=== PATIENT | male | born 1960 | race Caucasian/White ===

== ENCOUNTER 2023-01-23 16:15 | Inpatient (IN) | payer MEDICAID ==
[~2023-01-23] VITALS: Ht 172.7 cm; Wt 84.2 kg
[2023-01-23 18:27] LABS: BASOPHILS % (AUTO) 0.3 % (0.0-2.0); EOSINOPHILS % (AUTO) 2.1 % (1.0-6.0); HEMATOCRIT 41.3 % (41-53); HEMOGLOBIN 13.8 g/dL (13.5-17.5); LYMPHOCYTES # (AUTO) 1.4 K/uL (1.0-4.8); LYMPHOCYTES % (AUTO) 12.9 % (22.0-44.0); MEAN CORPUSCULAR HEMOGLOBIN 29.7 pg (26.0-34.0); MEAN CORPUSCULAR HGB CONC 33.4 G/dL (31.0-37.0); MEAN CORPUSCULAR VOLUME 89 fL (80-100); MONOCYTES # (AUTO) 1.3 K/uL (0.1-1.0); MONOCYTES % (AUTO) 11.6 % (2.0-9.0); NEUTROPHILS # (AUTO) 8.2 K/uL (1.8-7.7); NEUTROPHILS % (AUTO) 73.1 % (40.0-70.0); PLATELET COUNT (AUTO) 213 K/uL (150-450); RED BLOOD CELL COUNT(AUTO) 4.64 MIL/uL (4.50-5.90); RED CELL DISTRIBUTION WIDTH 14.1 % (11.5-14.5)
[2023-01-23 18:38] LABS: ANION GAP 12 mmol/L (8-16); CALCIUM, TOTAL 8.5 mg/dL (8.8-10.5); CARBON DIOXIDE 24 mmol/L (22-29); CHLORIDE 103 mmol/L (98-107); CREATININE 1.21 mg/dL (0.60-1.30); GLOMERULAR FILTR. RATE CALC > 60 mL/min (>60); GLUCOSE,RANDOM 105 mg/dL (70-110); POTASSIUM 3.7 mmol/L (3.5-5.1); SODIUM SERUM 139 mmol/L (136-145)
[2023-01-23 18:42] LABS: COVID AG,FIA SOURCE NASOPHARYNGEAL
[2023-01-23 18:44] LABS: ALANINE AMINOTRANSFERASE 25 U/L (12-78); ALKALINE PHOSPHATASE 55 U/L (46-116); ASPARTATE AMINOTRANSFERASE 12 U/L (15-37); BILIRUBIN,TOTAL 1.1 mg/dL (0.1-1.0); LIPASE 43 U/L (73-393); TOTAL PROTEIN, SERUM 6.8 g/dL (6.4-8.2)
[2023-01-23 23:28] LABS: APPEARANCE,URINE CLEAR (CLEAR); BILIRUBIN,URINE NEGATIVE (NEGATIVE); GLUCOSE, URINE (UA) 150-200 mg/dL (NEGATIVE); KETONES,URINE NEGATIVE (NEGATIVE); LEUKOCYTE ESTERASE ,URINE NEGATIVE (NEGATIVE); NITRATE,URINE NEGATIVE (NEGATIVE); OCCULT BLOOD,URINE TRACE (NEGATIVE); PROTEIN,URINE TRACE mg/dL (NEGATIVE); SPECIFIC GRAVITIY, URINE 1.029 (1.003-1.030)
[2023-01-24 00:37] LABS: AMPHET/METH SCREEN,URINE POSITIVE (NEGATIVE); BARBITURATE SCREEN, URINE NEGATIVE (NEGATIVE); BENZODIAZEPINES SCREEN,URINE NEGATIVE (NEGATIVE); CANNABINOID SCREEN,URINE NEGATIVE (NEGATIVE); COCAINE SCREEN,URINE NEGATIVE (NEGATIVE); METHADONE SCREEN, URINE NEGATIVE (NEGATIVE); OPIATE SCREEN,URINE NEGATIVE (NEGATIVE); PHENCYCLIDINE SCREEN,URINE NEGATIVE (NEGATIVE)
[2023-01-24 01:04] LABS: BACTERIA,URINE None Seen /HPF (None Seen); RBC,URINE 0-2 /HPF (0-2); SQUAMOUS EPITHELIAL CELL,UR Few /LPF (None Seen); WBC,URINE None Seen /HPF (0-5)
[2023-01-24] MEDS ORDERED: GuaiFENesin/D-METHORPHAN [SUGAR-FREE] 200-20MG/10 ML SYRUP UDCUP PO PRN (08:15)
[2023-01-24] MEDS ORDERED: ONDANSETRON HCL 4 MG TABLET PO PRN (08:15)
[2023-01-24] MEDS ORDERED: PETROLATUM,WHITE 28 GM JELLY TP PRN (08:15)
[2023-01-24] MEDS ORDERED: DOCUSATE SODIUM 100 MG CAPSULE PO PRN (08:15)
[2023-01-24] MEDS ORDERED: MAGNESIUM HYDROXIDE SUSPENSION 30 ML UDCUP PO PRN (08:15)
[2023-01-24] MEDS ORDERED: ALBUTEROL SULFATE HFA 90 MCG/PUFF 8 GM INHALER IH PRN (08:15)
[2023-01-24] MEDS ORDERED: NICOTINE 14 MG/24 HOUR PATCH TD PRN (08:15)
[2023-01-24] MEDS ORDERED: CloNIDine HCL 0.1 MG TABLET PO PRN (08:15)
[2023-01-24 09:52] VITALS: BP 129/90; PULSE 88; RESP 18; TEMP 98.2; O2SAT 98
[2023-01-24 10:32] VITALS: BP 129/90; PULSE 88; RESP 18; TEMP 98.2
[2023-01-24] MEDS: IBUPROFEN 400 MG TABLET PO PRN (10:52)
[2023-01-24] MEDS: LORazepam 2 MG TABLET PO PRN (10:52)
[2023-01-24] MEDS: HALOPERIDOL 5 MG TABLET PO PRN (10:52)
[2023-01-24] MEDS ORDERED: PNEUMOCOCCAL VACCINE POLYVALENT 0.5 ML VIAL [PPSV23] IM. ONE (11:15)
[2023-01-24 11:30] VITALS: BP 129/90; PULSE 88; RESP 18; TEMP 98.7
[2023-01-24 16:53] VITALS: BP 152/89; PULSE 72; RESP 18; TEMP 97.8; O2SAT 99
[2023-01-24 20:00] VITALS: BP 150/100; PULSE 78; RESP 18; TEMP 97.3; O2SAT 97
[2023-01-24] MEDS: OLANZapine 5 MG TABLET PO SCH (20:27)
[2023-01-24] MEDS: MAG HYDROX/AL HYDROX/SIMETH ES 30 ML SUSPENSION UDCUP PO PRN (23:40)
[2023-01-25] VITALS (7 sets, daily range): BP systolic 119–140; BP diastolic 69–86; PULSE 60–92; RESP 16–18; TEMP 97.1–99.1; O2SAT 93–96
[2023-01-25] MEDS: LORazepam 2 MG TABLET PO PRN ×3 (02:22→17:31)
[2023-01-25] MEDS: ACETAMINOPHEN 325 MG TABLET PO PRN (02:22)
[2023-01-25 07:59] LABS: HEMOGLOBIN A1C 5.1 % (3.8-5.6)
[2023-01-25 08:09] LABS: CHOL/HDL RATIO 3.4 (4.2-7.3); THYROID STIMULATING HORMONE 1.39 uIU/mL (0.36-3.74)
[2023-01-25] MEDS: TraMADol HCL 50 MG TABLET PO PRN ×2 (08:37→17:31)
[2023-01-25] MEDS: HALOPERIDOL 5 MG TABLET PO PRN ×2 (08:37→17:31)
[2023-01-25] MEDS: OLANZapine 5 MG TABLET PO SCH ×2 (08:37→20:24)
[2023-01-25] MEDS: CIPROFLOXACIN HCL 500 MG TABLET PO SCH ×2 (08:38→17:31)
[2023-01-25] MEDS: MetroNIDAZOLE 500 MG TABLET PO SCH ×3 (08:38→17:31)
[2023-01-26] MEDS: OLANZapine 5 MG TABLET PO SCH ×2 (08:19→20:29)
[2023-01-26] MEDS: CIPROFLOXACIN HCL 500 MG TABLET PO SCH ×2 (08:19→16:31)
[2023-01-26] MEDS: MetroNIDAZOLE 500 MG TABLET PO SCH ×3 (08:19→16:31)
[2023-01-26 09:42] VITALS: BP 134/73; PULSE 71; RESP 18; TEMP 96.8; O2SAT 100
[2023-01-26] MEDS: LORazepam 2 MG TABLET PO PRN ×2 (11:29→18:22)
[2023-01-26] MEDS: HALOPERIDOL 5 MG TABLET PO PRN (15:38)
[2023-01-26 21:10] VITALS: BP 136/87; PULSE 80; RESP 17; TEMP 97.6; O2SAT 96
[2023-01-26] MEDS: ZOLPIDEM TARTRATE 10 MG TABLET PO PRN (23:45)
[2023-01-27] MEDS: MetroNIDAZOLE 500 MG TABLET PO SCH ×3 (08:28→16:04)
[2023-01-27] MEDS: CIPROFLOXACIN HCL 500 MG TABLET PO SCH ×2 (08:28→16:04)
[2023-01-27] MEDS: OLANZapine 5 MG TABLET PO SCH ×2 (08:28→20:54)
[2023-01-27] MEDS: HALOPERIDOL 5 MG TABLET PO PRN ×2 (10:30→16:01)
[2023-01-27] MEDS: LORazepam 2 MG TABLET PO PRN ×2 (10:30→16:40)
[2023-01-27 12:25] VITALS: BP 140/84; PULSE 83; RESP 18; TEMP 97.7; O2SAT 99
[2023-01-27 20:23] VITALS: BP 126/82; PULSE 84; RESP 18; TEMP 98.1; O2SAT 98
[2023-01-27] MEDS: QUEtiapine FUMARATE 300 MG TABLET PO SCH (20:54)
[2023-01-27] MEDS: ZOLPIDEM TARTRATE 10 MG TABLET PO PRN (22:26)
[2023-01-28] MEDS: LORazepam 2 MG TABLET PO PRN ×3 (00:07→22:01)
[2023-01-28] MEDS: HALOPERIDOL 5 MG TABLET PO PRN ×2 (00:07→22:01)
[2023-01-28] MEDS: CIPROFLOXACIN HCL 500 MG TABLET PO SCH ×2 (08:22→16:05)
[2023-01-28] MEDS: MetroNIDAZOLE 500 MG TABLET PO SCH ×3 (08:23→16:05)
[2023-01-28] MEDS: QUEtiapine FUMARATE 100 MG TABLET PO SCH (08:25)
[2023-01-28] MEDS: OLANZapine 5 MG TABLET PO SCH ×2 (08:25→21:00)
[2023-01-28 08:44] VITALS: BP 128/86; PULSE 74; RESP 18; TEMP 97.8; O2SAT 92
[2023-01-28] MEDS: QUEtiapine FUMARATE 300 MG TABLET PO SCH (21:00)
[2023-01-28 21:44] VITALS: BP 139/95; PULSE 76; RESP 18; TEMP 98.3; O2SAT 98
[2023-01-29] MEDS: QUEtiapine FUMARATE 100 MG TABLET PO SCH (08:34)
[2023-01-29] MEDS: CIPROFLOXACIN HCL 500 MG TABLET PO SCH ×2 (08:34→16:26)
[2023-01-29] MEDS: OLANZapine 5 MG TABLET PO SCH ×2 (08:34→20:58)
[2023-01-29] MEDS: MetroNIDAZOLE 500 MG TABLET PO SCH ×3 (08:35→16:26)
[2023-01-29 08:48] VITALS: BP 129/90; PULSE 83; RESP 18; TEMP 97.9; O2SAT 97
[2023-01-29] MEDS: LORazepam 2 MG TABLET PO PRN (11:36)
[2023-01-29 12:28] VITALS: BP 135/65; PULSE 89; RESP 18
[2023-01-29] MEDS: TraMADol HCL 50 MG TABLET PO PRN (12:28)
[2023-01-29] MEDS: QUEtiapine FUMARATE 300 MG TABLET PO SCH (20:58)
[2023-01-29] MEDS: MAG HYDROX/AL HYDROX/SIMETH ES 30 ML SUSPENSION UDCUP PO PRN (21:24)
[2023-01-29 21:35] VITALS: BP 130/85; PULSE 82; RESP 18; RESP 20; TEMP 98.1; O2SAT 99
[2023-01-30 08:45] VITALS: BP 130/79; PULSE 92; RESP 19; TEMP 97.1; O2SAT 97
[2023-01-30] MEDS: CIPROFLOXACIN HCL 500 MG TABLET PO SCH ×2 (08:47→17:24)
[2023-01-30] MEDS: MetroNIDAZOLE 500 MG TABLET PO SCH ×3 (08:47→17:24)
[2023-01-30] MEDS: OLANZapine 5 MG TABLET PO SCH ×2 (08:48→21:23)
[2023-01-30] MEDS: QUEtiapine FUMARATE 100 MG TABLET PO SCH (08:48)
[2023-01-30] MEDS: MAG HYDROX/AL HYDROX/SIMETH ES 30 ML SUSPENSION UDCUP PO PRN (09:50)
[2023-01-30] MEDS: LORazepam 2 MG TABLET PO PRN ×2 (15:14→21:23)
[2023-01-30] MEDS: TraMADol HCL 50 MG TABLET PO PRN (18:06)
[2023-01-30] MEDS: QUEtiapine FUMARATE 300 MG TABLET PO SCH (21:23)
[2023-01-30 21:42] VITALS: BP 124/69; PULSE 85; RESP 18; TEMP 97.5
[2023-01-30] MEDS: LOPERAMIDE HCL 2 MG CAPSULE PO PRN (23:39)
[2023-01-31 08:54] VITALS: BP 134/83; PULSE 84; RESP 18; TEMP 97.9; O2SAT 96
[2023-01-31] MEDS: OLANZapine 5 MG TABLET PO SCH ×2 (08:57→21:31)
[2023-01-31] MEDS: TraMADol HCL 50 MG TABLET PO PRN ×2 (08:57→17:30)
[2023-01-31] MEDS: LORazepam 2 MG TABLET PO PRN ×2 (08:57→17:30)
[2023-01-31] MEDS: QUEtiapine FUMARATE 100 MG TABLET PO SCH (08:57)
[2023-01-31] MEDS: CIPROFLOXACIN HCL 500 MG TABLET PO SCH ×2 (08:58→16:22)
[2023-01-31] MEDS: MetroNIDAZOLE 500 MG TABLET PO SCH ×3 (08:58→16:22)
[2023-01-31 17:27] VITALS: BP 140/80; PULSE 88; RESP 20; TEMP 98
[2023-01-31] MEDS: QUEtiapine FUMARATE 300 MG TABLET PO SCH (21:31)
[2023-01-31 21:50] VITALS: BP 147/89; PULSE 79; RESP 18; TEMP 96.5; O2SAT 96
[2023-02-01] MEDS: QUEtiapine FUMARATE 100 MG TABLET PO SCH (08:41)
[2023-02-01] MEDS: OLANZapine 5 MG TABLET PO SCH ×2 (08:41→21:23)
[2023-02-01 08:50] VITALS: BP 120/82; PULSE 98; RESP 18; TEMP 97.8; O2SAT 98
[2023-02-01] MEDS: LOPERAMIDE HCL 2 MG CAPSULE PO PRN (08:52)
[2023-02-01] MEDS: TraMADol HCL 50 MG TABLET PO PRN (08:52)
[2023-02-01] MEDS: HALOPERIDOL 5 MG TABLET PO PRN ×2 (08:52→13:27)
[2023-02-01] MEDS: LORazepam 2 MG TABLET PO PRN ×2 (08:52→13:27)
[2023-02-01] MEDS: IBUPROFEN 400 MG TABLET PO PRN (13:27)
[2023-02-01 20:50] VITALS: BP 124/76; PULSE 82; RESP 18; TEMP 97.2; O2SAT 97
[2023-02-01] MEDS: QUEtiapine FUMARATE 300 MG TABLET PO SCH (21:24)
[2023-02-02 08:50] VITALS: BP 137/94; PULSE 80; RESP 18; TEMP 97; O2SAT 97
[2023-02-02] MEDS: HydrOXYzine PAMOATE 50 MG CAPSULE PO PRN ×2 (08:53→16:36)
[2023-02-02] MEDS: QUEtiapine FUMARATE 100 MG TABLET PO SCH (08:53)
[2023-02-02] MEDS: OLANZapine 5 MG TABLET PO SCH ×2 (08:53→20:48)
[2023-02-02] MEDS: TraMADol HCL 50 MG TABLET PO PRN ×2 (08:53→18:11)
[2023-02-02] MEDS: HALOPERIDOL 5 MG TABLET PO PRN (16:36)
[2023-02-02 18:09] VITALS: BP 128/86; PULSE 86; RESP 20; TEMP 98
[2023-02-02] MEDS: QUEtiapine FUMARATE 300 MG TABLET PO SCH (20:48)
[2023-02-02] MEDS: ZOLPIDEM TARTRATE 10 MG TABLET PO PRN (21:09)
[2023-02-03] MEDS: OLANZapine 5 MG TABLET PO SCH ×2 (08:22→20:34)
[2023-02-03] MEDS: QUEtiapine FUMARATE 100 MG TABLET PO SCH (08:23)
[2023-02-03 08:36] VITALS: BP 121/82; PULSE 74; RESP 18; TEMP 97.3; O2SAT 93
[2023-02-03] MEDS: TraMADol HCL 50 MG TABLET PO PRN ×2 (08:36→17:03)
[2023-02-03 08:57] VITALS: BP 121/82; PULSE 74; RESP 18; TEMP 97.3; O2SAT 98
[2023-02-03 12:12] VITALS: BP 126/78; PULSE 78; RESP 19; TEMP 98.3; O2SAT 98
[2023-02-03] MEDS: ACETAMINOPHEN 325 MG TABLET PO PRN ×2 (12:12→20:46)
[2023-02-03 17:03] VITALS: BP 122/74; PULSE 79; RESP 18; TEMP 97.7; O2SAT 99
[2023-02-03] MEDS: HydrOXYzine PAMOATE 50 MG CAPSULE PO PRN (17:04)
[2023-02-03] MEDS: QUEtiapine FUMARATE 300 MG TABLET PO SCH (20:34)
[2023-02-03 20:44] VITALS: BP 122/75; PULSE 79; RESP 20; TEMP 97.7; O2SAT 98
[2023-02-03] MEDS: ZOLPIDEM TARTRATE 10 MG TABLET PO PRN (21:26)
[2023-02-04] MEDS: TraMADol HCL 50 MG TABLET PO PRN (03:31)
[2023-02-04 03:33] VITALS: BP 139/91; PULSE 80; RESP 20; TEMP 96.2; O2SAT 95
[2023-02-04 08:33] VITALS: BP 131/80; PULSE 80; RESP 18; TEMP 97.8; O2SAT 98
[2023-02-04] MEDS: QUEtiapine FUMARATE 100 MG TABLET PO SCH (08:48)
[2023-02-04] MEDS: OLANZapine 5 MG TABLET PO SCH (08:48)
[2023-02-04] MEDS: HydrOXYzine PAMOATE 50 MG CAPSULE PO PRN (08:50)
[2023-02-04] MEDS ORDERED: QUET300T19 PO (14:19)
[2023-02-04] MEDS ORDERED: OLAN5TAB52 PO (14:19)
[2023-02-04] MEDS ORDERED: QUET100T34 PO (14:19)
== END 2023-02-04 15:30 | disposition home or self-care (01) | DRG 750 ==
LOC: EMS 16:15 → 3EI 01-24 06:23
PROVIDERS: ADMIT Psychiatry & Neurology Child & Adolescent Psychiatry; ATTEND Psychiatry & Neurology Child & Adolescent Psychiatry
DX: F25.1 Schizoaffective disorder, depressive type (principal); R45.851 Suicidal ideations; D72.829 Elevated white blood cell count, unspecified; K57.32 Diverticulitis of large intestine without perforation or abscess without bleeding; Z20.822 Contact with and (suspected) exposure to COVID-19; R03.0 Elevated blood-pressure reading, without diagnosis of hypertension; F15.10 Other stimulant abuse, uncomplicated; E80.6 Other disorders of bilirubin metabolism
CPT/HCPCS: 74176; 80053; 80061; 80307; 81001; 83036; 83690; 84443; 85025; 87081; 99285; G0480

== ENCOUNTER 2023-03-12 10:17 | Inpatient (IN) | payer MEDICAID ==
[~2023-03-12] VITALS: Ht 172.7 cm; Wt 90.1 kg
[~2023-03-12 10:17] MED LIST: OLAN5TAB52 PO; QUET100T34 PO; QUET300T19 PO
[2023-03-12] MEDS ORDERED: ZIPR40CA38 PO (10:54)
[2023-03-12] MEDS ORDERED: BUPR450T3 PO (10:54)
[2023-03-12 11:36] LABS: BASOPHILS % (AUTO) 0.4 % (0.0-2.0); EOSINOPHILS % (AUTO) 1.6 % (1.0-6.0); HEMATOCRIT 46.7 % (41-53); HEMOGLOBIN 15.6 g/dL (13.5-17.5); LYMPHOCYTES % (AUTO) 16.3 % (22.0-44.0); MEAN CORPUSCULAR HEMOGLOBIN 29.1 pg (26.0-34.0); MEAN CORPUSCULAR HGB CONC 33.3 G/dL (31.0-37.0); MEAN CORPUSCULAR VOLUME 87 fL (80-100); MONOCYTES # (AUTO) 0.5 K/uL (0.1-1.0); MONOCYTES % (AUTO) 8.8 % (2.0-9.0); NEUTROPHILS # (AUTO) 4.3 K/uL (1.8-7.7); NEUTROPHILS % (AUTO) 72.9 % (40.0-70.0); PLATELET COUNT (AUTO) 252 K/uL (150-450); RED BLOOD CELL COUNT(AUTO) 5.36 MIL/uL (4.50-5.90); RED CELL DISTRIBUTION WIDTH 14.2 % (11.5-14.5); WHITE BLOOD COUNT (AUTO) 5.9 K/uL (4.5-11.0)
[2023-03-12 11:47] LABS: ANION GAP 11 mmol/L (8-16); CALCIUM, TOTAL 8.9 mg/dL (8.8-10.5); CARBON DIOXIDE 22 mmol/L (22-29); CHLORIDE 106 mmol/L (98-107); CREATININE 0.96 mg/dL (0.60-1.30); GLOMERULAR FILTR. RATE CALC > 60 mL/min (>60); GLUCOSE,RANDOM 96 mg/dL (70-110); POTASSIUM 4.4 mmol/L (3.5-5.1); SODIUM SERUM 139 mmol/L (136-145); UREA NITROGEN, BLOOD 32 mg/dL (7-18)
[2023-03-12 11:49] LABS: ALCOHOL, BLOOD (SERUM) < 3 mg/dL (0-10)
[2023-03-12 11:51] LABS: ALANINE AMINOTRANSFERASE 31 U/L (12-78); ALBUMIN 3.6 g/dL (3.4-5.0); ALKALINE PHOSPHATASE 57 U/L (46-116); ASPARTATE AMINOTRANSFERASE 22 U/L (15-37); BILIRUBIN,TOTAL 0.6 mg/dL (0.1-1.0); TOTAL PROTEIN, SERUM 7.4 g/dL (6.4-8.2)
[2023-03-12 12:16] LABS: COVID AG,FIA SOURCE NASOPHARYNGEAL
[2023-03-12] MEDS ORDERED: OLANZapine 5 MG TABLET PO ONE (12:45)
[2023-03-12] MEDS ORDERED: LORazepam 2 MG/ML VIAL IM ONE (12:45)
[2023-03-12] MEDS ORDERED: DiphenhydrAMINE HCL 50 MG/ML VIAL IM ONE (12:45)
[2023-03-12 12:52] LABS: SARS-COV2 (COVID) ANTIGEN,FIA Negative (Negative)
[2023-03-12 16:17] VITALS: BP 110/76; PULSE 81; RESP 18; TEMP 98.1; O2SAT 99
[2023-03-12] MEDS: CEPHALEXIN MONOHYDRATE 500 MG CAPSULE PO SCH (18:07)
[2023-03-12 20:32] VITALS: BP 109/73; PULSE 104; RESP 18; TEMP 98.3; O2SAT 98
[2023-03-13 09:27] VITALS: BP 130/69; PULSE 78; RESP 19; TEMP 97.9; O2SAT 97
[2023-03-13] MEDS: CEPHALEXIN MONOHYDRATE 500 MG CAPSULE PO SCH ×3 (09:32→17:21)
[2023-03-13] MEDS: HALOPERIDOL 5 MG TABLET PO PRN (12:31)
[2023-03-13] MEDS: LORazepam 2 MG TABLET PO PRN (12:31)
[2023-03-13] MEDS: QUEtiapine FUMARATE 100 MG TABLET PO SCH (13:26)
[2023-03-13] MEDS ORDERED: NICOTINE 14 MG/24 HOUR PATCH TD PRN (14:00)
[2023-03-13] MEDS ORDERED: CloNIDine HCL 0.1 MG TABLET PO PRN (14:00)
[2023-03-13] MEDS ORDERED: MAGNESIUM HYDROXIDE SUSPENSION 30 ML UDCUP PO PRN (14:00)
[2023-03-13] MEDS ORDERED: MAG HYDROX/AL HYDROX/SIMETH ES 30 ML SUSPENSION UDCUP PO PRN (14:00)
[2023-03-13] MEDS ORDERED: ONDANSETRON HCL 4 MG TABLET PO PRN (14:00)
[2023-03-13] MEDS ORDERED: ALBUTEROL SULFATE HFA 90 MCG/PUFF 8 GM INHALER IH PRN (14:00)
[2023-03-13] MEDS ORDERED: DOCUSATE SODIUM 100 MG CAPSULE PO PRN (14:00)
[2023-03-13] MEDS ORDERED: ACETAMINOPHEN 325 MG TABLET PO PRN (14:00)
[2023-03-13] MEDS ORDERED: LOPERAMIDE HCL 2 MG CAPSULE PO PRN (14:00)
[2023-03-13] MEDS ORDERED: PETROLATUM,WHITE 28 GM JELLY TP PRN (14:00)
[2023-03-13 20:45] VITALS: BP 98/77; PULSE 86; RESP 19; TEMP 97.8; O2SAT 93
[2023-03-13] MEDS: QUEtiapine FUMARATE 300 MG TABLET PO SCH (21:00)
[2023-03-14] MEDS: ZOLPIDEM TARTRATE 10 MG TABLET PO PRN ×2 (00:35→20:54)
[2023-03-14 08:06] LABS: HEMOGLOBIN A1C 5.2 % (3.8-5.6)
[2023-03-14 08:20] LABS: CHOL/HDL RATIO 5.6 (4.2-7.3); THYROID STIMULATING HORMONE 2.06 uIU/mL (0.36-3.74)
[2023-03-14 08:32] VITALS: BP 118/78; PULSE 66; RESP 18; TEMP 97.4; O2SAT 96
[2023-03-14] MEDS: QUEtiapine FUMARATE 100 MG TABLET PO SCH (09:59)
[2023-03-14] MEDS: CEPHALEXIN MONOHYDRATE 500 MG CAPSULE PO SCH ×3 (09:59→17:14)
[2023-03-14] MEDS: LORazepam 2 MG TABLET PO PRN ×2 (16:15→22:49)
[2023-03-14] MEDS: HALOPERIDOL 5 MG TABLET PO PRN ×2 (16:16→20:54)
[2023-03-14 20:34] VITALS: BP 136/97; PULSE 70; RESP 19; TEMP 97.8; O2SAT 92
[2023-03-14] MEDS: QUEtiapine FUMARATE 300 MG TABLET PO SCH (20:55)
[2023-03-15 08:45] VITALS: BP 104/58; PULSE 60; RESP 19; TEMP 97.9; O2SAT 100
[2023-03-15 08:46] LABS: APPEARANCE,URINE CLEAR (CLEAR); BILIRUBIN,URINE NEGATIVE (NEGATIVE); COLOR,URINE LIGHT YELLOW (YELLOW); GLUCOSE, URINE (UA) NEGATIVE (NEGATIVE); KETONES,URINE NEGATIVE (NEGATIVE); LEUKOCYTE ESTERASE ,URINE NEGATIVE (NEGATIVE); NITRATE,URINE NEGATIVE (NEGATIVE); OCCULT BLOOD,URINE NEGATIVE (NEGATIVE); PH,URINE 6.5 (5.0-8.0); PH,URINE DRUG SCREEN 6.5 (5.0-8.0); PROTEIN,URINE NEGATIVE (NEGATIVE); SPECIFIC GRAVITIY, URINE 1.019 (1.003-1.030); UROBILINOGEN,URINE <=1.0 mg/dL (<=1.0)
[2023-03-15 08:52] LABS: ALCOHOL, URINE DRUG SCREEN NEGATIVE (NEGATIVE); AMPHET/METH SCREEN,URINE NEGATIVE (NEGATIVE); BARBITURATE SCREEN, URINE NEGATIVE (NEGATIVE); BENZODIAZEPINES SCREEN,URINE NEGATIVE (NEGATIVE); CANNABINOID SCREEN,URINE NEGATIVE (NEGATIVE); COCAINE SCREEN,URINE NEGATIVE (NEGATIVE); METHADONE SCREEN, URINE NEGATIVE (NEGATIVE); OPIATE SCREEN,URINE NEGATIVE (NEGATIVE); PHENCYCLIDINE SCREEN,URINE NEGATIVE (NEGATIVE)
[2023-03-15] MEDS: QUEtiapine FUMARATE 100 MG TABLET PO SCH (09:00)
[2023-03-15] MEDS: CEPHALEXIN MONOHYDRATE 500 MG CAPSULE PO SCH ×3 (09:07→16:59)
[2023-03-15] MEDS: HALOPERIDOL 5 MG TABLET PO PRN ×2 (12:54→19:21)
[2023-03-15] MEDS: LORazepam 2 MG TABLET PO PRN ×2 (12:54→19:21)
[2023-03-15] MEDS: OLANZapine 10 MG TABLET PO SCH (20:01)
[2023-03-15 20:17] VITALS: BP 128/85; PULSE 64; RESP 20; TEMP 98; O2SAT 95
[2023-03-15] MEDS: ZOLPIDEM TARTRATE 10 MG TABLET PO PRN (20:39)
[2023-03-16 09:00] VITALS: BP 105/69; PULSE 77; RESP 18; TEMP 96.3; O2SAT 97
[2023-03-16] MEDS: CEPHALEXIN MONOHYDRATE 500 MG CAPSULE PO SCH ×3 (09:18→16:47)
[2023-03-16] MEDS: HALOPERIDOL 5 MG TABLET PO PRN ×2 (12:52→17:52)
[2023-03-16] MEDS: LORazepam 2 MG TABLET PO PRN ×2 (12:53→17:52)
[2023-03-16] MEDS: OLANZapine 10 MG TABLET PO SCH (20:15)
[2023-03-16 20:19] VITALS: BP 119/89; PULSE 60; RESP 19; TEMP 98.4; O2SAT 97
[2023-03-16] MEDS: ZOLPIDEM TARTRATE 10 MG TABLET PO PRN (21:08)
[2023-03-17 08:52] VITALS: BP 115/85; PULSE 78; RESP 18; TEMP 97.5; O2SAT 95
[2023-03-17] MEDS: BuPROPion HCL XL 150 MG ER TABLET PO SCH (09:32)
[2023-03-17] MEDS: CEPHALEXIN MONOHYDRATE 500 MG CAPSULE PO SCH ×3 (09:32→16:40)
[2023-03-17] MEDS: LORazepam 2 MG TABLET PO PRN ×2 (12:52→18:47)
[2023-03-17] MEDS: HALOPERIDOL 5 MG TABLET PO PRN ×2 (12:52→18:55)
[2023-03-17 20:19] VITALS: BP 134/81; PULSE 77; RESP 18; TEMP 97.8; O2SAT 94
[2023-03-17] MEDS: OLANZapine 10 MG TABLET PO SCH (20:46)
[2023-03-17] MEDS: ZOLPIDEM TARTRATE 10 MG TABLET PO PRN (22:48)
[2023-03-18 08:53] VITALS: BP 108/70; PULSE 78; RESP 19; TEMP 97.8; O2SAT 97
[2023-03-18] MEDS: BuPROPion HCL XL 150 MG ER TABLET PO SCH (09:48)
[2023-03-18] MEDS: CEPHALEXIN MONOHYDRATE 500 MG CAPSULE PO SCH ×3 (09:48→16:57)
[2023-03-18] MEDS: LORazepam 2 MG TABLET PO PRN ×2 (12:30→21:20)
[2023-03-18] MEDS: HALOPERIDOL 5 MG TABLET PO PRN ×2 (12:47→22:43)
[2023-03-18] MEDS: OLANZapine 10 MG TABLET PO SCH (20:17)
[2023-03-18] MEDS: ZOLPIDEM TARTRATE 10 MG TABLET PO PRN (20:17)
[2023-03-18 20:43] VITALS: BP 116/68; PULSE 71; RESP 17; TEMP 98.2; O2SAT 97
[2023-03-19] MEDS: LORazepam 2 MG TABLET PO PRN ×2 (01:20→12:26)
[2023-03-19 08:46] VITALS: BP 120/80; PULSE 66; RESP 18; TEMP 97.5; O2SAT 95
[2023-03-19] MEDS: BuPROPion HCL XL 150 MG ER TABLET PO SCH (09:55)
[2023-03-19 20:41] VITALS: BP 138/96; PULSE 75; RESP 17; TEMP 99.1; O2SAT 97
[2023-03-19] MEDS: OLANZapine 10 MG TABLET PO SCH (20:56)
[2023-03-19] MEDS: ZOLPIDEM TARTRATE 10 MG TABLET PO PRN (20:57)
[2023-03-19] MEDS: HALOPERIDOL 5 MG TABLET PO PRN (22:25)
[2023-03-20] MEDS: LORazepam 2 MG TABLET PO PRN ×3 (03:12→16:21)
[2023-03-20] MEDS: BuPROPion HCL XL 150 MG ER TABLET PO SCH (08:45)
[2023-03-20 10:48] VITALS: BP 112/64; PULSE 90; RESP 20; TEMP 98; O2SAT 96
[2023-03-20] MEDS: HALOPERIDOL 5 MG TABLET PO PRN (16:21)
[2023-03-20] MEDS: GuaiFENesin/D-METHORPHAN [SUGAR-FREE] 200-20MG/10 ML SYRUP UDCUP PO PRN (18:11)
[2023-03-20] MEDS: ZOLPIDEM TARTRATE 10 MG TABLET PO PRN (20:37)
[2023-03-20] MEDS: OLANZapine 10 MG TABLET PO SCH (20:37)
[2023-03-20 20:44] VITALS: BP 125/76; PULSE 78; RESP 18; TEMP 97.9; O2SAT 98
[2023-03-21] MEDS: GuaiFENesin/D-METHORPHAN [SUGAR-FREE] 200-20MG/10 ML SYRUP UDCUP PO PRN ×2 (00:15→17:23)
[2023-03-21 08:50] VITALS: BP 119/78; PULSE 69; RESP 18; TEMP 97.9; O2SAT 96
[2023-03-21] MEDS: BuPROPion HCL XL 150 MG ER TABLET PO SCH (09:49)
[2023-03-21] MEDS: HALOPERIDOL 5 MG TABLET PO PRN (14:05)
[2023-03-21] MEDS: LORazepam 2 MG TABLET PO PRN (14:05)
[2023-03-21] MEDS: OLANZapine 10 MG TABLET PO SCH (20:42)
[2023-03-21] MEDS: ZOLPIDEM TARTRATE 10 MG TABLET PO PRN (20:42)
[2023-03-21 20:59] VITALS: BP 124/87; PULSE 91; RESP 18; TEMP 97.8; O2SAT 98
[2023-03-22 00:01] LABS: GLUCOMETER DEV NAME(LOC) POC.BV; POC SARS-COV2 AG, FIA NEGATIVE (NEGATIVE)
[2023-03-22] MEDS: GuaiFENesin/D-METHORPHAN [SUGAR-FREE] 200-20MG/10 ML SYRUP UDCUP PO PRN ×2 (00:06→20:59)
[2023-03-22] MEDS: LORazepam 2 MG TABLET PO PRN ×2 (00:07→17:13)
[2023-03-22] MEDS: HALOPERIDOL 5 MG TABLET PO PRN ×2 (00:20→17:13)
[2023-03-22] MEDS: BuPROPion HCL XL 150 MG ER TABLET PO SCH (09:11)
[2023-03-22 10:16] VITALS: BP 119/83; PULSE 74; RESP 20; TEMP 98; O2SAT 94
[2023-03-22] MEDS: OLANZapine 10 MG TABLET PO SCH (20:32)
[2023-03-22 20:46] VITALS: BP 130/98; PULSE 63; RESP 19; TEMP 98; O2SAT 95
[2023-03-22] MEDS: ZOLPIDEM TARTRATE 10 MG TABLET PO PRN (21:24)
[2023-03-23] MEDS: HALOPERIDOL 5 MG TABLET PO PRN ×2 (00:29→14:09)
[2023-03-23] MEDS: LORazepam 2 MG TABLET PO PRN ×2 (00:29→08:33)
[2023-03-23] MEDS: BuPROPion HCL XL 150 MG ER TABLET PO SCH (08:32)
[2023-03-23 08:46] VITALS: BP 122/89; PULSE 66; RESP 18; TEMP 97.9; O2SAT 96
[2023-03-23] MEDS: GuaiFENesin/D-METHORPHAN [SUGAR-FREE] 200-20MG/10 ML SYRUP UDCUP PO PRN (17:01)
[2023-03-23] MEDS: OLANZapine 10 MG TABLET PO SCH (20:45)
[2023-03-23] MEDS: ZOLPIDEM TARTRATE 10 MG TABLET PO PRN (20:45)
[2023-03-23 20:50] VITALS: BP 125/82; PULSE 72; RESP 18; TEMP 98.1; O2SAT 98
[2023-03-24 00:06] VITALS: BP 142/74; PULSE 77; RESP 17; TEMP 97.8; O2SAT 95
[2023-03-24] MEDS: LORazepam 2 MG TABLET PO PRN ×2 (00:12→14:05)
[2023-03-24] MEDS: GuaiFENesin/D-METHORPHAN [SUGAR-FREE] 200-20MG/10 ML SYRUP UDCUP PO PRN (00:12)
[2023-03-24 08:39] VITALS: BP 119/77; PULSE 68; RESP 19; TEMP 97.5; O2SAT 95
[2023-03-24] MEDS: BuPROPion HCL XL 150 MG ER TABLET PO SCH (09:31)
[2023-03-24] MEDS: OLANZapine 10 MG TABLET PO SCH (20:46)
[2023-03-24 20:51] VITALS: BP 132/99; PULSE 69; RESP 17; TEMP 97.6; O2SAT 95
[2023-03-24] MEDS: ZOLPIDEM TARTRATE 10 MG TABLET PO PRN (21:05)
[2023-03-25] MEDS: BuPROPion HCL XL 150 MG ER TABLET PO SCH (07:37)
[2023-03-25 08:56] VITALS: BP 132/89; PULSE 66; RESP 18; TEMP 97.8; O2SAT 95
[2023-03-25] MEDS: LORazepam 2 MG TABLET PO PRN ×2 (09:40→21:31)
[2023-03-25] MEDS: HALOPERIDOL 5 MG TABLET PO PRN (18:21)
[2023-03-25] MEDS: OLANZapine 10 MG TABLET PO SCH (20:38)
[2023-03-25 20:49] VITALS: BP 129/89; PULSE 67; RESP 17; TEMP 98; O2SAT 96
[2023-03-25] MEDS: ZOLPIDEM TARTRATE 10 MG TABLET PO PRN (21:31)
[2023-03-26 08:28] VITALS: BP 113/68; PULSE 73; RESP 18; TEMP 97.4; O2SAT 93
[2023-03-26] MEDS: BuPROPion HCL XL 150 MG ER TABLET PO SCH (09:42)
[2023-03-26] MEDS: HALOPERIDOL 5 MG TABLET PO PRN ×2 (14:13→22:47)
[2023-03-26] MEDS: LORazepam 2 MG TABLET PO PRN ×2 (17:26→22:47)
[2023-03-26] MEDS: OLANZapine 10 MG TABLET PO SCH (20:43)
[2023-03-26] MEDS: TraZODone HCL 100 MG TABLET PO PRN (20:58)
[2023-03-26 22:41] VITALS: BP 127/88; PULSE 89; RESP 18; TEMP 98.1; O2SAT 92
[2023-03-26] MEDS: GuaiFENesin/D-METHORPHAN [SUGAR-FREE] 200-20MG/10 ML SYRUP UDCUP PO PRN (23:47)
[2023-03-27 08:52] VITALS: BP 120/80; PULSE 80; RESP 18; TEMP 98.4; O2SAT 97
[2023-03-27] MEDS: BuPROPion HCL XL 150 MG ER TABLET PO SCH (09:43)
[2023-03-27] MEDS: POVIDONE-IODINE 10% 240 ML SOLUTION TP SCH (10:01)
[2023-03-27] MEDS: BACITRACIN 28 GM OINTMENT TP SCH (10:02)
[2023-03-27] MEDS: HALOPERIDOL 5 MG TABLET PO PRN ×2 (15:49→21:49)
[2023-03-27] MEDS: GuaiFENesin/D-METHORPHAN [SUGAR-FREE] 200-20MG/10 ML SYRUP UDCUP PO PRN (17:42)
[2023-03-27] MEDS: OLANZapine 10 MG TABLET PO SCH (20:18)
[2023-03-27 20:38] VITALS: BP 124/96; PULSE 76; RESP 18; TEMP 98.3; O2SAT 95
[2023-03-27] MEDS: TraZODone HCL 100 MG TABLET PO PRN (20:39)
[2023-03-27] MEDS: LORazepam 2 MG TABLET PO PRN (21:49)
[2023-03-28] MEDS: BuPROPion HCL XL 150 MG ER TABLET PO SCH (09:41)
[2023-03-28] MEDS: BACITRACIN 28 GM OINTMENT TP SCH (09:44)
[2023-03-28] MEDS: POVIDONE-IODINE 10% 240 ML SOLUTION TP SCH (09:44)
[2023-03-28 16:07] VITALS: BP 119/63; PULSE 72; RESP 18; TEMP 97.2; O2SAT 97
[2023-03-28] MEDS: CEPHALEXIN MONOHYDRATE 500 MG CAPSULE PO SCH (16:18)
[2023-03-28] MEDS: HALOPERIDOL 5 MG TABLET PO PRN ×2 (17:12→22:34)
[2023-03-28 20:23] VITALS: BP 112/77; PULSE 80; RESP 18; TEMP 98.2; O2SAT 98
[2023-03-28] MEDS: OLANZapine 10 MG TABLET PO SCH (21:18)
[2023-03-28] MEDS: TraZODone HCL 100 MG TABLET PO PRN (21:19)
[2023-03-29] MEDS: BuPROPion HCL XL 150 MG ER TABLET PO SCH (08:45)
[2023-03-29] MEDS: CEPHALEXIN MONOHYDRATE 500 MG CAPSULE PO SCH ×3 (08:45→16:32)
[2023-03-29 08:50] VITALS: BP 132/92; PULSE 63; RESP 18; TEMP 97.7; O2SAT 96
[2023-03-29] MEDS: BACITRACIN 28 GM OINTMENT TP SCH (10:13)
[2023-03-29] MEDS: POVIDONE-IODINE 10% 240 ML SOLUTION TP SCH (10:15)
[2023-03-29] MEDS: LORazepam 2 MG TABLET PO PRN (12:48)
[2023-03-29] MEDS: HALOPERIDOL 5 MG TABLET PO PRN ×2 (12:48→20:38)
[2023-03-29] MEDS: TraZODone HCL 100 MG TABLET PO PRN (20:38)
[2023-03-29] MEDS: OLANZapine 10 MG TABLET PO SCH (20:38)
[2023-03-29 20:50] VITALS: BP 113/71; PULSE 64; RESP 18; TEMP 98.1; O2SAT 92
[2023-03-30 00:20] VITALS: BP 119/85; PULSE 81; RESP 18; TEMP 97.8; O2SAT 96
[2023-03-30] MEDS: LORazepam 2 MG TABLET PO PRN (00:22)
[2023-03-30] MEDS: IBUPROFEN 400 MG TABLET PO PRN ×2 (00:23→21:10)
[2023-03-30 08:42] VITALS: BP 104/71; PULSE 78; RESP 18; TEMP 97.6; O2SAT 94
[2023-03-30] MEDS: BuPROPion HCL XL 150 MG ER TABLET PO SCH (09:49)
[2023-03-30] MEDS: CEPHALEXIN MONOHYDRATE 500 MG CAPSULE PO SCH ×3 (09:49→16:30)
[2023-03-30] MEDS: POVIDONE-IODINE 10% 240 ML SOLUTION TP SCH (09:53)
[2023-03-30] MEDS: BACITRACIN 28 GM OINTMENT TP SCH (09:54)
[2023-03-30] MEDS: HALOPERIDOL 5 MG TABLET PO PRN ×2 (15:53→20:29)
[2023-03-30] MEDS: OLANZapine 10 MG TABLET PO SCH (20:25)
[2023-03-30 20:44] VITALS: BP 115/91; PULSE 62; RESP 17; TEMP 98.1; O2SAT 96
[2023-03-30 21:10] VITALS: RESP 16
[2023-03-30 22:10] VITALS: RESP 16
[2023-03-30] MEDS: TraZODone HCL 100 MG TABLET PO PRN (22:36)
[2023-03-31 08:56] VITALS: BP 120/69; PULSE 61; RESP 18; TEMP 97.7; O2SAT 95
[2023-03-31] MEDS: CEPHALEXIN MONOHYDRATE 500 MG CAPSULE PO SCH ×3 (09:49→17:41)
[2023-03-31] MEDS: BuPROPion HCL XL 150 MG ER TABLET PO SCH (09:49)
[2023-03-31] MEDS: BACITRACIN 28 GM OINTMENT TP SCH (09:53)
[2023-03-31] MEDS: POVIDONE-IODINE 10% 240 ML SOLUTION TP SCH (09:53)
[2023-03-31] MEDS: HALOPERIDOL 5 MG TABLET PO PRN (17:41)
[2023-03-31 21:04] VITALS: BP 130/88; PULSE 65; RESP 19; TEMP 97.5; O2SAT 98
[2023-03-31 21:25] VITALS: RESP 18
[2023-03-31] MEDS: TraZODone HCL 100 MG TABLET PO PRN (21:59)
[2023-03-31] MEDS: IBUPROFEN 400 MG TABLET PO PRN (21:59)
[2023-03-31] MEDS: OLANZapine 10 MG TABLET PO SCH (21:59)
[2023-04-01 08:33] VITALS: BP 124/80; PULSE 70; RESP 18; TEMP 97.7; O2SAT 98
[2023-04-01] MEDS ORDERED: BuPROPion HCL 75 MG TABLET PO SCH (09:00)
[2023-04-01] MEDS: CEPHALEXIN MONOHYDRATE 500 MG CAPSULE PO SCH ×2 (09:27→12:11)
[2023-04-01] MEDS: BACITRACIN 28 GM OINTMENT TP SCH (09:57)
[2023-04-01] MEDS: POVIDONE-IODINE 10% 240 ML SOLUTION TP SCH (09:58)
[2023-04-01] MEDS ORDERED: OLAN10TA74 PO (10:44)
[2023-04-01] MEDS ORDERED: BUPR-344 PO (10:45)
[2023-04-01] MEDS ORDERED: CEPH-558 PO ×2 (10:52→10:54)
== END 2023-04-01 14:30 | disposition home or self-care (01) | DRG 750 ==
LOC: EMS 10:22 → B2S 12:36
PROVIDERS: ADMIT Psychiatry & Neurology Child & Adolescent Psychiatry; ATTEND Psychiatry & Neurology Child & Adolescent Psychiatry
DX: F25.1 Schizoaffective disorder, depressive type (principal); R45.851 Suicidal ideations; F41.9 Anxiety disorder, unspecified; Z20.822 Contact with and (suspected) exposure to COVID-19; K57.90 Diverticulosis of intestine, part unspecified, without perforation or abscess without bleeding; R00.0 Tachycardia, unspecified
CPT/HCPCS: 80053; 80061; 80307; 81003; 83036; 84443; 85025; 87081; 99285; G0480; J1200; J2060; J3535

== ENCOUNTER 2023-04-28 18:54 | Emergency (ER) | payer MEDICAID ==
[~2023-04-28] VITALS: Ht 172.7 cm; Wt 86.4 kg
[~2023-04-28 18:54] MED LIST changes: +BUPR-344 PO; +CEPH-558 PO; +OLAN10TA74 PO; -OLAN5TAB52 PO; -QUET100T34 PO; -QUET300T19 PO
[2023-04-28 19:13] VITALS: TEMP 97.7
[2023-04-28] MEDS ORDERED: SODIUM CHLORIDE 0.9% 1,000 ML IV ONE (19:15)
[2023-04-28 19:29] LABS: BASOPHILS % (AUTO) 0.4 % (0.0-2.0); EOSINOPHILS % (AUTO) 1.8 % (1.0-6.0); HEMATOCRIT 44.1 % (41-53); HEMOGLOBIN 14.5 g/dL (13.5-17.5); LYMPHOCYTES # (AUTO) 0.6 K/uL (1.0-4.8); LYMPHOCYTES % (AUTO) 11.6 % (22.0-44.0); MEAN CORPUSCULAR HEMOGLOBIN 30.2 pg (26.0-34.0); MEAN CORPUSCULAR HGB CONC 32.9 G/dL (31.0-37.0); MEAN CORPUSCULAR VOLUME 92 fL (80-100); MONOCYTES # (AUTO) 0.3 K/uL (0.1-1.0); MONOCYTES % (AUTO) 6.2 % (2.0-9.0); NEUTROPHILS # (AUTO) 4.5 K/uL (1.8-7.7); PLATELET COUNT (AUTO) 253 K/uL (150-450); RED BLOOD CELL COUNT(AUTO) 4.82 MIL/uL (4.50-5.90); WHITE BLOOD COUNT (AUTO) 5.6 K/uL (4.5-11.0)
[2023-04-28 19:39] LABS: PROTHROMBIN TIME 10.6 SEC (9.4-11.6)
[2023-04-28 19:48] LABS: ALCOHOL, BLOOD (SERUM) < 3 mg/dL (0-10)
[2023-04-28 19:49] LABS: ANION GAP 9 mmol/L (8-16); CALCIUM, TOTAL 9.1 mg/dL (8.8-10.5); CARBON DIOXIDE 25 mmol/L (22-29); CHLORIDE 107 mmol/L (98-107); CREATININE 1.59 mg/dL (0.60-1.30); GLOMERULAR FILTR. RATE CALC 44 mL/min (>60); GLUCOSE,RANDOM 119 mg/dL (70-110); POTASSIUM 4.4 mmol/L (3.5-5.1); SODIUM SERUM 141 mmol/L (136-145); UREA NITROGEN, BLOOD 28 mg/dL (7-18)
[2023-04-28 19:54] LABS: SALICYLATE < 2.8 mg/dL (2.8-20.0)
[2023-04-28 19:55] LABS: ALANINE AMINOTRANSFERASE 39 U/L (12-78); ALBUMIN 3.3 g/dL (3.4-5.0); ALKALINE PHOSPHATASE 62 U/L (46-116); ASPARTATE AMINOTRANSFERASE 24 U/L (15-37); BILIRUBIN,TOTAL 0.3 mg/dL (0.1-1.0)
[2023-04-28 19:57] LABS: ACETAMINOPHEN < 2 mcg/mL (10-30)
[2023-04-28 21:13] VITALS: BP 128/75; PULSE 90; RESP 16
== END 2023-04-28 23:16 | disposition home or self-care (01) ==
LOC: EMS 18:55
DX: T40.411A Poisoning by fentanyl or fentanyl analogs, accidental (unintentional), initial encounter (principal); F41.9 Anxiety disorder, unspecified; F20.9 Schizophrenia, unspecified; Y92.89 Other specified places as the place of occurrence of the external cause
CPT/HCPCS: 99285; 96360; 71045; 80053; 85025; 85610; 36415; 93005; G0480; G0481

== ENCOUNTER 2023-08-15 12:05 | Emergency (ER) | payer MEDICAID ==
[~2023-08-15] VITALS: Ht 172.7 cm; Wt 86.4 kg
[2023-08-15 12:15] VITALS: TEMP 98.3
[2023-08-15] MEDS ORDERED: HYDROCODONE/ACETAMINOPHEN 5-325 MG TABLET PO ONE (15:00)
[2023-08-15] MEDS ORDERED: LATA2.5D14 OU (15:00)
[2023-08-15] MEDS ORDERED: BUPR-49 PO (15:00)
[2023-08-15] MEDS ORDERED: DORZ10DR10 OU (15:00)
[2023-08-15] MEDS ORDERED: ATRO2DRO7 OD (15:00)
[2023-08-15] MEDS ORDERED: PREDAOS OD (15:00)
[2023-08-15 15:21] VITALS: BP 139/84; PULSE 84; RESP 16
== END 2023-08-15 15:30 | disposition home or self-care (01) ==
LOC: EMS 12:05
DX: S46.001A Unspecified injury of muscle(s) and tendon(s) of the rotator cuff of right shoulder, initial encounter (principal); F41.9 Anxiety disorder, unspecified; F31.9 Bipolar disorder, unspecified; F20.9 Schizophrenia, unspecified; F15.90 Other stimulant use, unspecified, uncomplicated; Z98.890 Other specified postprocedural states; Y08.89XA Assault by other specified means, initial encounter; Y93.89 Activity, other specified; Y92.89 Other specified places as the place of occurrence of the external cause; Y99.8 Other external cause status
CPT/HCPCS: 29105; 99283

== ENCOUNTER 2024-02-03 18:55 | Inpatient (IN) | payer MEDICAID ==
[~2024-02-03] VITALS: Ht 172.7 cm; Wt 84.4 kg
[~2024-02-03 18:55] MED LIST changes: +ATRO2DRO7 OD; -BUPR-344 PO; +BUPR-49 PO; -CEPH-558 PO; +DORZ10DR10 OU; +LATA2.5D14 OU; -OLAN10TA74 PO; +PREDAOS OD
[2024-02-03 22:43] LABS: COVID AG,FIA SOURCE NASAL SWAB
[2024-02-03 22:54] LABS: ALCOHOL, BLOOD (SERUM) < 3 mg/dL (0-10)
[2024-02-03 22:55] LABS: PH,URINE DRUG SCREEN 6.5 (5.0-8.0)
[2024-02-03 22:56] LABS: APPEARANCE,URINE CLEAR (CLEAR); BILIRUBIN,URINE NEGATIVE (NEGATIVE); COLOR,URINE YELLOW (YELLOW); GLUCOSE, URINE (UA) NEGATIVE (NEGATIVE); KETONES,URINE NEGATIVE (NEGATIVE); LEUKOCYTE ESTERASE ,URINE LARGE (NEGATIVE); NITRATE,URINE NEGATIVE (NEGATIVE); OCCULT BLOOD,URINE SMALL (NEGATIVE); PH,URINE 6.5 (5.0-8.0); PROTEIN,URINE TRACE mg/dL (NEGATIVE); UROBILINOGEN,URINE <=1.0 mg/dL (<=1.0)
[2024-02-03 22:57] LABS: BASOPHILS % (AUTO) 0.4 % (0.0-2.0); EOSINOPHILS % (AUTO) 3.2 % (1.0-6.0); HEMATOCRIT 46.5 % (41-53); HEMOGLOBIN 15.3 g/dL (13.5-17.5); LYMPHOCYTES # (AUTO) 1.3 K/uL (1.0-4.8); MEAN CORPUSCULAR HEMOGLOBIN 29.3 pg (26.0-34.0); MEAN CORPUSCULAR HGB CONC 32.8 G/dL (31.0-37.0); MEAN CORPUSCULAR VOLUME 89 fL (80-100); MONOCYTES # (AUTO) 0.6 K/uL (0.1-1.0); MONOCYTES % (AUTO) 10.2 % (2.0-9.0); NEUTROPHILS # (AUTO) 3.6 K/uL (1.8-7.7); NEUTROPHILS % (AUTO) 63.2 % (40.0-70.0); PLATELET COUNT (AUTO) 202 K/uL (150-450); RED CELL DISTRIBUTION WIDTH 13.1 % (11.5-14.5); WHITE BLOOD COUNT (AUTO) 5.8 K/uL (4.5-11.0)
[2024-02-03 23:01] LABS: ALCOHOL, URINE DRUG SCREEN NEGATIVE (NEGATIVE); AMPHET/METH SCREEN,URINE POSITIVE (NEGATIVE); BARBITURATE SCREEN, URINE NEGATIVE (NEGATIVE); BENZODIAZEPINES SCREEN,URINE NEGATIVE (NEGATIVE); CANNABINOID SCREEN,URINE NEGATIVE (NEGATIVE); COCAINE SCREEN,URINE NEGATIVE (NEGATIVE); METHADONE SCREEN, URINE NEGATIVE (NEGATIVE); OPIATE SCREEN,URINE POSITIVE (NEGATIVE); PHENCYCLIDINE SCREEN,URINE NEGATIVE (NEGATIVE)
[2024-02-03 23:04] LABS: SARS-COV2 (COVID) ANTIGEN,FIA Negative (Negative)
[2024-02-03 23:19] LABS: ANION GAP 11 mmol/L (8-16); CALCIUM, TOTAL 9.2 mg/dL (8.8-10.5); CARBON DIOXIDE 26 mmol/L (22-29); CHLORIDE 103 mmol/L (98-107); CREATININE 0.99 mg/dL (0.60-1.30); GLOMERULAR FILTR. RATE CALC > 60 mL/min (>60); GLUCOSE,RANDOM 96 mg/dL (70-110); POTASSIUM 3.8 mmol/L (3.5-5.1); SODIUM SERUM 140 mmol/L (136-145); UREA NITROGEN, BLOOD 36 mg/dL (7-18)
[2024-02-03 23:24] LABS: BACTERIA,URINE Moderate /HPF (None Seen); RBC,URINE 0-2 /HPF (0-2); SQUAMOUS EPITHELIAL CELL,UR Few /LPF (None Seen)
[2024-02-03 23:25] LABS: AMORPHOUS SEDIMENT,UR Moderate /LPF (None Seen); URIC ACID CRYSTALS,URINE Few /LPF (None Seen)
[2024-02-04] MEDS: ZOLPIDEM TARTRATE 10 MG TABLET PO PRN (01:00)
[2024-02-04] MEDS: CEPHALEXIN MONOHYDRATE 500 MG CAPSULE PO ONE (07:07)
[2024-02-04] MEDS: HALOPERIDOL 5 MG TABLET PO PRN (07:12)
[2024-02-04] MEDS: LORazepam 2 MG TABLET PO PRN (07:12)
[2024-02-04 11:45] VITALS: BP 133/83; PULSE 65; RESP 16; TEMP 98.3; O2SAT 95
[2024-02-04 20:54] VITALS: BP 135/74; PULSE 81; RESP 17; TEMP 98.2; O2SAT 96
[2024-02-04] MEDS ORDERED: OMEPRAZOLE 20 MG CAPSULE PO PRN (23:15)
[2024-02-04] MEDS ORDERED: BENZOCAINE/MENTHOL LOZENGE PO PRN (23:15)
[2024-02-04] MEDS ORDERED: ONDANSETRON HCL 4 MG TABLET PO PRN (23:15)
[2024-02-04] MEDS ORDERED: DOCUSATE SODIUM 100 MG CAPSULE PO PRN (23:15)
[2024-02-04] MEDS ORDERED: ALBUTEROL SULFATE HFA 90 MCG/PUFF 8 GM INHALER IH PRN (23:15)
[2024-02-04] MEDS ORDERED: CloNIDine HCL 0.1 MG TABLET PO PRN (23:15)
[2024-02-04] MEDS ORDERED: PETROLATUM,WHITE 28 GM JELLY TP PRN (23:15)
[2024-02-04] MEDS ORDERED: MAGNESIUM HYDROXIDE SUSPENSION 30 ML UDCUP PO PRN (23:15)
[2024-02-04] MEDS ORDERED: LOPERAMIDE HCL 2 MG CAPSULE PO PRN (23:15)
[2024-02-04] MEDS ORDERED: MAG HYDROX/ALUMINUM HYD/SIMETH ES 30 ML SUSPENSION UDCUP PO PRN (23:15)
[2024-02-04] MEDS ORDERED: BACITRACIN 28 GM OINTMENT TP PRN (23:15)
[2024-02-04 23:20] VITALS: BP 139/81; PULSE 78; RESP 17; TEMP 98; O2SAT 97
[2024-02-04] MEDS: IBUPROFEN 600 MG TABLET PO PRN (23:22)
[2024-02-05] MEDS: CEPHALEXIN MONOHYDRATE 500 MG CAPSULE PO SCH (08:46)
[2024-02-05] MEDS: PrednisoLONE ACETATE 1% 5 ML OPHTHALMIC SUSPENSION OD SCH (09:00)
[2024-02-05 09:14] VITALS: BP 136/83; PULSE 82; RESP 18; TEMP 97.7; O2SAT 98
[2024-02-05] MEDS: DORZOLAMIDE/TIMOLOL 2-0.5% [22.3-6.8MG/ML] 10 ML OPHTHALMIC SOLUTION OU SCH (09:30)
[2024-02-05] MEDS: BuPROPion HCL 100 MG SR TABLET PO SCH (12:30)
[2024-02-05 20:54] VITALS: BP 134/80; PULSE 85; RESP 18; TEMP 97.8; O2SAT 98
[2024-02-05] MEDS: QUEtiapine FUMARATE 300 MG TABLET PO SCH (21:16)
[2024-02-05] MEDS: LATANOPROST 0.005% 2.5 ML OPHTHALMIC SOLUTION OU SCH (21:28)
[2024-02-06 10:01] VITALS: BP 113/78; PULSE 60; RESP 18; TEMP 98; O2SAT 98
[2024-02-06 12:04] VITALS: BP 121/82; PULSE 74; RESP 17; O2SAT 97
[2024-02-06] MEDS: ACETAMINOPHEN 325 MG TABLET PO PRN (12:07)
[2024-02-06 20:48] VITALS: BP 121/80; RESP 17; TEMP 98.8; O2SAT 98
[2024-02-06 21:20] VITALS: BP 121/80; PULSE 97; RESP 17; TEMP 98.8; O2SAT 98
[2024-02-06 22:23] VITALS: RESP 18
[2024-02-07 12:44] VITALS: BP 114/67; PULSE 53; RESP 17; TEMP 97.6; O2SAT 96
[2024-02-07 20:41] VITALS: BP 121/63; PULSE 72; RESP 18; TEMP 97.4
[2024-02-08 08:00] VITALS: BP 129/69; PULSE 68; RESP 18; TEMP 97.6; O2SAT 96
[2024-02-08 23:15] VITALS: BP 130/74; PULSE 68; RESP 18; TEMP 98.4; O2SAT 98
[2024-02-09 09:15] VITALS: BP 128/70; PULSE 64; RESP 19; TEMP 97
[2024-02-09 16:57] VITALS: BP 122/70; PULSE 68; RESP 18; TEMP 97.8
[2024-02-09 17:57] VITALS: BP 124/76; PULSE 70; RESP 18; TEMP 97.6
[2024-02-09 21:28] VITALS: BP 120/92; PULSE 65; RESP 18; TEMP 98.2; O2SAT 96
[2024-02-10] MEDS ORDERED: BUPR-225 PO (07:26)
[2024-02-10] MEDS ORDERED: QUET300T19 PO (07:26)
[2024-02-10 11:38] VITALS: BP 136/80; PULSE 65; RESP 16; TEMP 98.8; O2SAT 97
== END 2024-02-10 17:11 | disposition home or self-care (01) | DRG 753 ==
LOC: EMS 18:55 → 3EI 02-04 17:00
PROVIDERS: ADMIT Psychiatry & Neurology Psychiatry; ATTEND Psychiatry & Neurology Psychiatry
PROC: GZHZZZZ Group Psychotherapy (ICD-10-PCS; principal; 2024-02-05)
PROC: GZ52ZZZ Individual Psychotherapy, Cognitive (ICD-10-PCS; 2024-02-05)
DX: F31.4 Bipolar disorder, current episode depressed, severe, without psychotic features (principal); L98.429 Non-pressure chronic ulcer of back with unspecified severity; R45.851 Suicidal ideations; F41.9 Anxiety disorder, unspecified; H40.9 Unspecified glaucoma; F15.20 Other stimulant dependence, uncomplicated; F11.20 Opioid dependence, uncomplicated; Z20.822 Contact with and (suspected) exposure to COVID-19; G47.00 Insomnia, unspecified; K59.00 Constipation, unspecified; N39.0 Urinary tract infection, site not specified; Z79.899 Other long term (current) drug therapy; Z72.0 Tobacco use
CPT/HCPCS: 80048; 80307; 81001; 85025; 87086; 87186; 99285; G0480

== ENCOUNTER 2024-05-13 04:30 | Emergency (ER) | payer MEDICAID ==
[~2024-05-13] VITALS: Ht 172.7 cm; Wt 84.1 kg
[~2024-05-13 04:30] MED LIST changes: -ATRO2DRO7 OD; +BUPR-225 PO; -BUPR-49 PO; -DORZ10DR10 OU; -LATA2.5D14 OU; -PREDAOS OD; +QUET300T19 PO
[2024-05-13 04:33] VITALS: TEMP 97.2
[2024-05-13 05:53] LABS: BASOPHILS % (AUTO) 0.3 % (0.0-2.0); EOSINOPHILS % (AUTO) 3.4 % (1.0-6.0); HEMATOCRIT 41.5 % (41-53); HEMOGLOBIN 13.7 g/dL (13.5-17.5); LYMPHOCYTES # (AUTO) 1.2 K/uL (1.0-4.8); LYMPHOCYTES % (AUTO) 14.8 % (22.0-44.0); MEAN CORPUSCULAR HEMOGLOBIN 29.7 pg (26.0-34.0); MEAN CORPUSCULAR VOLUME 90 fL (80-100); MONOCYTES # (AUTO) 0.8 K/uL (0.1-1.0); MONOCYTES % (AUTO) 9.4 % (2.0-9.0); NEUTROPHILS # (AUTO) 5.7 K/uL (1.8-7.7); NEUTROPHILS % (AUTO) 72.1 % (40.0-70.0); PLATELET COUNT (AUTO) 220 K/uL (150-450); RED CELL DISTRIBUTION WIDTH 14.1 % (11.5-14.5)
[2024-05-13 05:54] LABS: ANION GAP 7 mmol/L (8-16); CALCIUM, TOTAL 7.6 mg/dL (8.8-10.5); CARBON DIOXIDE 26 mmol/L (22-29); CHLORIDE 103 mmol/L (98-107); CREATININE 1.36 mg/dL (0.60-1.30); GLOMERULAR FILTR. RATE CALC 53 mL/min (>60); GLUCOSE,RANDOM 105 mg/dL (70-110); SODIUM SERUM 136 mmol/L (136-145); UREA NITROGEN, BLOOD 37 mg/dL (7-18)
[2024-05-13 06:01] LABS: ALANINE AMINOTRANSFERASE 28 U/L (12-78); ALBUMIN 2.8 g/dL (3.4-5.0); ALKALINE PHOSPHATASE 120 U/L (46-116); ASPARTATE AMINOTRANSFERASE 16 U/L (15-37); BILIRUBIN,TOTAL 0.2 mg/dL (0.1-1.0); LIPASE 24 U/L (16-77); TOTAL PROTEIN, SERUM 6.4 g/dL (6.4-8.2)
[2024-05-13 06:15] LABS: BILIRUBIN,DIRECT < 0.05 mg/dL (0.00-0.20)
[2024-05-13] MEDS: SODIUM CHLORIDE 0.9% 1,000 ML IV ONE (06:54)
[2024-05-13] MEDS: FAMOTIDINE 20 MG/2 ML VIAL IVP ONE (06:55)
[2024-05-13] MEDS: ONDANSETRON HCL 4 MG/2 ML VIAL IVP ONE (06:55)
[2024-05-13] MEDS: MAG HYDROX/ALUMINUM HYD/SIMETH 30 ML SUSPENSION UDCUP PO ONE (06:55)
[2024-05-13 07:24] LABS: TROPONIN I-HIGH SENSITIVITY 9 ng/L (<76)
[2024-05-13 08:45] VITALS: BP 125/69; PULSE 92; RESP 18; O2SAT 98
[2024-05-13] MEDS ORDERED: ONDA-104 PO (08:45)
== END 2024-05-13 10:04 | disposition home or self-care (01) ==
LOC: EMS 04:32
DX: K52.9 Noninfective gastroenteritis and colitis, unspecified (principal); F20.9 Schizophrenia, unspecified; F31.9 Bipolar disorder, unspecified; Z79.899 Other long term (current) drug therapy
CPT/HCPCS: 99285; 96374; 71045; 96361; 96375; 80048; 80076; 83690; 83735; 84484; 85025; 36415; 93005; J3490; J2405; J7030

== ENCOUNTER → 2024-05-28 | Emergency (ER) | payer MEDICAID ==
[~2024-05-28] VITALS: Ht 175.3 cm; Wt 79.4 kg
[~2024-05-28] MED LIST changes: +ONDA-104 PO
[2024-05-28 22:50] VITALS: BP 137/82; PULSE 75; RESP 16; TEMP 98.6; O2SAT 98
== END | disposition home or self-care (01) ==
LOC: EMS 15:12
DX: M54.2 Cervicalgia (principal); F25.1 Schizoaffective disorder, depressive type; F31.9 Bipolar disorder, unspecified; F15.10 Other stimulant abuse, uncomplicated; Z79.899 Other long term (current) drug therapy; Y04.8XXA Assault by other bodily force, initial encounter; Y93.89 Activity, other specified; Y92.89 Other specified places as the place of occurrence of the external cause; Y99.8 Other external cause status
CPT/HCPCS: 72040; 99283

== ENCOUNTER 2024-07-17 09:18 | Emergency (ER) | payer MEDICARE, MEDICAID ==
[~2024-07-17] VITALS: Ht 172.7 cm; Wt 90.9 kg
[~2024-07-17 09:18] MED LIST changes: -BUPR-225 PO; +BUPR-514 PO; +BUSP5TAB20 PO; +DORZ10DR10 OU; +LATA2.5D14 OU; +LOSA-381 PO; -ONDA-104 PO; +TAMS0.4C94 PO; +TRAZ-257 PO
[2024-07-17 09:39] VITALS: TEMP 98.3
[2024-07-17 11:01] LABS: BASOPHILS % (AUTO) 0.4 % (0.0-2.0); EOSINOPHILS % (AUTO) 1.1 % (1.0-6.0); HEMATOCRIT 51.9 % (41-53); HEMOGLOBIN 17.2 g/dL (13.5-17.5); LYMPHOCYTES # (AUTO) 0.2 K/uL (1.0-4.8); LYMPHOCYTES % (AUTO) 2.9 % (22.0-44.0); MEAN CORPUSCULAR HEMOGLOBIN 29.8 pg (26.0-34.0); MEAN CORPUSCULAR HGB CONC 33.1 G/dL (31.0-37.0); MEAN CORPUSCULAR VOLUME 90 fL (80-100); MONOCYTES # (AUTO) 0.3 K/uL (0.1-1.0); MONOCYTES % (AUTO) 3.4 % (2.0-9.0); NEUTROPHILS # (AUTO) 7.4 K/uL (1.8-7.7); NEUTROPHILS % (AUTO) 92.2 % (40.0-70.0); PLATELET COUNT (AUTO) 209 K/uL (150-450); RED BLOOD CELL COUNT(AUTO) 5.76 MIL/uL (4.50-5.90); RED CELL DISTRIBUTION WIDTH 14.4 % (11.5-14.5)
[2024-07-17 11:08] LABS: ANION GAP 9 mmol/L (8-16); CALCIUM, TOTAL 8.8 mg/dL (8.8-10.5); CARBON DIOXIDE 28 mmol/L (22-29); CHLORIDE 104 mmol/L (98-107); CREATININE 1.09 mg/dL (0.60-1.30); GLOMERULAR FILTR. RATE CALC > 60 mL/min (>60); GLUCOSE,RANDOM 119 mg/dL (70-110); POTASSIUM 4.7 mmol/L (3.5-5.1); PROTHROMBIN TIME 10.5 SEC (9.4-11.6); SODIUM SERUM 141 mmol/L (136-145); UREA NITROGEN, BLOOD 26 mg/dL (7-18)
[2024-07-17 11:17] LABS: TROPONIN I-HIGH SENSITIVITY 9 ng/L (<76)
[2024-07-17 11:24] LABS: B-TYPE NATRIURETIC PEPTIDE 45 pg/mL (0-100)
[2024-07-17 11:33] LABS: CREATINE KINASE, TOTAL ONLY 98 U/L (39-308)
[2024-07-17 12:26] LABS: APPEARANCE,URINE CLEAR (CLEAR); BILIRUBIN,URINE NEGATIVE (NEGATIVE); COLOR,URINE YELLOW (YELLOW); GLUCOSE, URINE (UA) NEGATIVE (NEGATIVE); KETONES,URINE NEGATIVE (NEGATIVE); LEUKOCYTE ESTERASE ,URINE NEGATIVE (NEGATIVE); NITRATE,URINE NEGATIVE (NEGATIVE); OCCULT BLOOD,URINE SMALL (NEGATIVE); PH,URINE 5.5 (5.0-8.0); PROTEIN,URINE TRACE mg/dL (NEGATIVE); SPECIFIC GRAVITIY, URINE 1.026 (1.003-1.030); UROBILINOGEN,URINE <=1.0 mg/dL (<=1.0)
[2024-07-17 12:38] LABS: BACTERIA,URINE None Seen /HPF (None Seen); RBC,URINE 0-2 /HPF (0-2); SQUAMOUS EPITHELIAL CELL,UR Few /LPF (None Seen); WBC,URINE None Seen /HPF (0-5)
[2024-07-17] MEDS: ONDANSETRON HCL 4 MG/2 ML VIAL IVP ONE (13:13)
[2024-07-17] MEDS: DIPHENOXYLATE/ATROP 2.5-0.025 MG TABLET PO ONE (13:14)
[2024-07-17] MEDS: CIPROFLOXACIN HCL 250 MG TABLET PO ONE (13:14)
[2024-07-17 13:21] VITALS: BP 154/96; PULSE 72; RESP 16; O2SAT 97
[2024-07-17] MEDS ORDERED: ONDA-104 PO (14:48)
[2024-07-17] MEDS: LORazepam 1 MG TABLET PO ONE (14:54)
== END 2024-07-17 16:27 | disposition home or self-care (01) ==
LOC: EMS 09:19
DX: R19.7 Diarrhea, unspecified (principal); R11.2 Nausea with vomiting, unspecified; F31.9 Bipolar disorder, unspecified; F41.9 Anxiety disorder, unspecified; F20.9 Schizophrenia, unspecified; I10 Essential (primary) hypertension; Z79.899 Other long term (current) drug therapy
CPT/HCPCS: 99285; 96374; 71045; 80048; 81001; 82550; 83880; 84484; 85025; 85610; 85730; 36415; 93005; J2405

== ENCOUNTER 2024-08-25 11:19 | Inpatient (IN) | payer OTHER, MEDICAID ==
[~2024-08-25] VITALS: Ht 175.3 cm; Wt 89.8 kg
[~2024-08-25 11:19] MED LIST changes: +ONDA-104 PO
[2024-08-25 11:48] LABS: COVID AG,FIA SOURCE NASAL SWAB
[2024-08-25 12:10] LABS: BASOPHILS % (AUTO) 0.4 % (0.0-2.0); EOSINOPHILS % (AUTO) 3.6 % (1.0-6.0); HEMATOCRIT 47.2 % (41-53); HEMOGLOBIN 15.4 g/dL (13.5-17.5); LYMPHOCYTES # (AUTO) 1.2 K/uL (1.0-4.8); LYMPHOCYTES % (AUTO) 19.3 % (22.0-44.0); MEAN CORPUSCULAR HEMOGLOBIN 29.7 pg (26.0-34.0); MEAN CORPUSCULAR HGB CONC 32.5 G/dL (31.0-37.0); MEAN CORPUSCULAR VOLUME 91 fL (80-100); MONOCYTES # (AUTO) 0.5 K/uL (0.1-1.0); MONOCYTES % (AUTO) 7.8 % (2.0-9.0); NEUTROPHILS # (AUTO) 4.1 K/uL (1.8-7.7); NEUTROPHILS % (AUTO) 68.9 % (40.0-70.0); PLATELET COUNT (AUTO) 208 K/uL (150-450); RED BLOOD CELL COUNT(AUTO) 5.18 MIL/uL (4.50-5.90); RED CELL DISTRIBUTION WIDTH 15.7 % (11.5-14.5)
[2024-08-25 12:12] LABS: SARS-COV2 (COVID) ANTIGEN,FIA Negative (Negative)
[2024-08-25 12:18] LABS: ANION GAP 5 mmol/L (8-16); CALCIUM, TOTAL 8.9 mg/dL (8.8-10.5); CARBON DIOXIDE 28 mmol/L (22-29); CHLORIDE 108 mmol/L (98-107); CREATININE 1.13 mg/dL (0.60-1.30); GLOMERULAR FILTR. RATE CALC > 60 mL/min (>60); GLUCOSE,RANDOM 92 mg/dL (70-110); POTASSIUM 4.6 mmol/L (3.5-5.1); SODIUM SERUM 141 mmol/L (136-145); UREA NITROGEN, BLOOD 32 mg/dL (7-18)
[2024-08-25 12:35] LABS: ALCOHOL, BLOOD (SERUM) < 3 mg/dL (0-10)
[2024-08-25] MEDS ORDERED: ROSU40TA88 PO (13:06)
[2024-08-25] MEDS ORDERED: CHOL10002 PO (13:06)
[2024-08-25 14:10] LABS: ALCOHOL, URINE DRUG SCREEN NEGATIVE (NEGATIVE); AMPHET/METH SCREEN,URINE NEGATIVE (NEGATIVE); BARBITURATE SCREEN, URINE NEGATIVE (NEGATIVE); BENZODIAZEPINES SCREEN,URINE NEGATIVE (NEGATIVE); CANNABINOID SCREEN,URINE NEGATIVE (NEGATIVE); COCAINE SCREEN,URINE NEGATIVE (NEGATIVE); METHADONE SCREEN, URINE NEGATIVE (NEGATIVE); OPIATE SCREEN,URINE NEGATIVE (NEGATIVE); PHENCYCLIDINE SCREEN,URINE NEGATIVE (NEGATIVE)
[2024-08-25 14:19] LABS: APPEARANCE,URINE CLEAR (CLEAR); BILIRUBIN,URINE NEGATIVE (NEGATIVE); COLOR,URINE LIGHT YELLOW (YELLOW); GLUCOSE, URINE (UA) NEGATIVE (NEGATIVE); KETONES,URINE NEGATIVE (NEGATIVE); LEUKOCYTE ESTERASE ,URINE NEGATIVE (NEGATIVE); NITRATE,URINE NEGATIVE (NEGATIVE); OCCULT BLOOD,URINE TRACE (NEGATIVE); PH,URINE 5.5 (5.0-8.0); PH,URINE DRUG SCREEN 5.5 (5.0-8.0); PROTEIN,URINE TRACE mg/dL (NEGATIVE); SPECIFIC GRAVITIY, URINE 1.022 (1.003-1.030); UROBILINOGEN,URINE <=1.0 mg/dL (<=1.0)
[2024-08-25 14:29] LABS: BACTERIA,URINE None Seen /HPF (None Seen); RBC,URINE 0-2 /HPF (0-2); SQUAMOUS EPITHELIAL CELL,UR Few /LPF (None Seen); WBC,URINE None Seen /HPF (0-5)
[2024-08-26 05:45] LABS: CHOL/HDL RATIO 2.9 (4.2-7.3)
[2024-08-26 05:48] LABS: HEMOGLOBIN A1C 5.5 % (3.8-5.6)
[2024-08-26] MEDS ORDERED: BuPROPion HCL 75 MG TABLET PO ONE (09:00)
[2024-08-26] MEDS: ROSUVASTATIN CALCIUM 20 MG TABLET PO ONE (09:23)
[2024-08-26] MEDS: LOSARTAN POTASSIUM 25 MG TABLET PO ONE (09:23)
[2024-08-26] MEDS: ACETAMINOPHEN 325 MG TABLET PO ONE (09:23)
[2024-08-26] MEDS: BusPIRone HCL 5 MG TABLET PO ONE (09:23)
[2024-08-26] MEDS: BuPROPion HCL XL 150 MG ER TABLET PO ONE (09:23)
[2024-08-26] MEDS: LORazepam 2 MG TABLET PO PRN (18:06)
[2024-08-26] MEDS: ZOLPIDEM TARTRATE 10 MG TABLET PO PRN (18:47)
[2024-08-26] MEDS: HALOPERIDOL 5 MG TABLET PO PRN (18:48)
[2024-08-27 10:40] VITALS: O2SAT 99
[2024-08-27] MEDS ORDERED: GUAIFDM PO (10:40)
[2024-08-27] MEDS ORDERED: IBUP-1554 PO (10:40)
[2024-08-27] MEDS ORDERED: ACET-2080 PO (10:40)
[2024-08-27] MEDS ORDERED: BusPIRone HCL 5 MG TABLET PO SCH (11:00)
[2024-08-27 12:00] VITALS: BP 124/74; PULSE 75; RESP 16; TEMP 97.9; O2SAT 97
[2024-08-27] MEDS ORDERED: MAGNESIUM HYDROXIDE SUSPENSION 30 ML UDCUP PO PRN (14:15)
[2024-08-27] MEDS ORDERED: LOPERAMIDE HCL 2 MG CAPSULE PO PRN (14:15)
[2024-08-27] MEDS ORDERED: MAG HYDROX/ALUMINUM HYD/SIMETH ES 30 ML SUSPENSION UDCUP PO PRN (14:15)
[2024-08-27] MEDS ORDERED: ALBUTEROL SULFATE HFA 90 MCG/PUFF 8 GM INHALER IH PRN (14:15)
[2024-08-27] MEDS ORDERED: ONDANSETRON 4 MG TABLET PO PRN (14:15)
[2024-08-27] MEDS ORDERED: DOCUSATE SODIUM 100 MG CAPSULE PO PRN (14:15)
[2024-08-27] MEDS ORDERED: CloNIDine HCL 0.1 MG TABLET PO PRN (14:15)
[2024-08-27] MEDS ORDERED: PETROLATUM,WHITE 28 GM JELLY TP PRN (14:15)
[2024-08-27] MEDS ORDERED: OMEPRAZOLE 20 MG CAPSULE PO PRN (14:15)
[2024-08-27] MEDS ORDERED: BENZOCAINE/MENTHOL LOZENGE PO PRN (14:15)
[2024-08-27 14:44] VITALS: RESP 16; O2SAT 98
[2024-08-27] MEDS: IBUPROFEN 600 MG TABLET PO PRN (14:44)
[2024-08-27 15:44] VITALS: RESP 17; O2SAT 98
[2024-08-27] MEDS: DORZOLAMIDE/TIMOLOL 2-0.5% [22.3-6.8MG/ML] 10 ML OPHTHALMIC SOLUTION OU SCH (17:00)
[2024-08-27 20:12] VITALS: BP 99/72; PULSE 100; RESP 17; TEMP 97.5; O2SAT 97
[2024-08-27 20:14] VITALS: BP 138/92; PULSE 76; RESP 18; TEMP 97.9; O2SAT 100
[2024-08-27] MEDS: LATANOPROST 0.005% 2.5 ML OPHTHALMIC SOLUTION OU SCH (21:43)
[2024-08-28 06:04] VITALS: BP 145/94; PULSE 62; RESP 18; TEMP 97.7; O2SAT 96
[2024-08-28 07:00] VITALS: RESP 18; O2SAT 98
[2024-08-28] MEDS: ROSUVASTATIN CALCIUM 20 MG TABLET PO SCH (09:07)
[2024-08-28] MEDS: TAMSULOSIN HCL 0.4 MG CAPSULE PO SCH (09:07)
[2024-08-28] MEDS: LOSARTAN POTASSIUM 25 MG TABLET PO SCH (09:07)
[2024-08-28] MEDS: CHOLECALCIFEROL (VIT D3) 1,000 UNITS [25 MCG] TABLET PO SCH (09:08)
[2024-08-28 09:14] VITALS: BP 136/73; PULSE 60; RESP 17; TEMP 97.7; O2SAT 95
[2024-08-28] MEDS: BACITRACIN 28 GM OINTMENT TP PRN (09:16)
[2024-08-28] MEDS ORDERED: TraZODone HCL 100 MG TABLET PO PRN (16:30)
[2024-08-28] MEDS: BusPIRone HCL 5 MG TABLET PO SCH (16:49)
[2024-08-28] MEDS: ACETAMINOPHEN 325 MG TABLET PO PRN (18:35)
[2024-08-28] MEDS ORDERED: TraMADol HCL 50 MG TABLET PO PRN (19:15)
[2024-08-28 20:13] VITALS: BP 138/79; PULSE 70; RESP 18; TEMP 97.8; O2SAT 100
[2024-08-28] MEDS: QUEtiapine FUMARATE 300 MG TABLET PO SCH (20:58)
[2024-08-28 22:05] VITALS: BP 156/98; PULSE 73; RESP 18; TEMP 97.9; O2SAT 95
[2024-08-29] MEDS: BuPROPion HCL XL 150 MG ER TABLET PO SCH (09:21)
[2024-08-29 10:13] VITALS: BP 147/70; PULSE 62; RESP 18; TEMP 98; O2SAT 100
[2024-08-29 11:42] VITALS: BP 118/75; PULSE 68; RESP 18; TEMP 97.8; O2SAT 98
[2024-08-29 12:42] VITALS: RESP 17
[2024-08-29 18:13] VITALS: BP 123/83; PULSE 69; RESP 18
[2024-08-29 19:19] VITALS: RESP 16
[2024-08-29 21:20] VITALS: BP 115/58; PULSE 69; RESP 18; TEMP 98.9
== END 2024-08-29 21:16 | disposition short-term general hospital (02) | DRG 885 ==
LOC: EMS 11:19 → B2S 08-27 10:25 → 3EI 08-27 11:00
PROVIDERS: ADMIT Psychiatry & Neurology Psychiatry; ATTEND Psychiatry & Neurology Psychiatry
DX: F31.9 Bipolar disorder, unspecified (principal); R45.851 Suicidal ideations; I10 Essential (primary) hypertension; N40.0 Benign prostatic hyperplasia without lower urinary tract symptoms; E78.5 Hyperlipidemia, unspecified; F41.9 Anxiety disorder, unspecified; L08.9 Local infection of the skin and subcutaneous tissue, unspecified; H40.9 Unspecified glaucoma; G47.00 Insomnia, unspecified; K59.00 Constipation, unspecified; Z20.822 Contact with and (suspected) exposure to COVID-19; L98.429 Non-pressure chronic ulcer of back with unspecified severity; F19.10 Other psychoactive substance abuse, uncomplicated
CPT/HCPCS: 80048; 80061; 80307; 81001; 83036; 85025; 87070; 87081; 87186; 87205; 99285; G0480